=== PATIENT | female | born 1930 | race Caucasian/White ===

== ENCOUNTER 2017-11-19 11:45 | Emergency (ER) | payer OTHER ==
[2017-11-19] MEDS ORDERED: NS 1,000 ML IV ONE (13:16)
[2017-11-19 13:24] LABS: PLATELET COUNT 331 10^3/uL (150-400)
--- NOTE | 2017-11-19 14:49 | EDPHY ---
H & P Stated Complaint: abdominal pain N/D starting yesterday Time Seen by Provider: 11/19/17 12:45 HPI/ROS: Chief Complaint: Diarrhea HPI: 87-year-old woman started having loose stools yesterday. She has had 3-4 every day. Did have some abdominal pain earlier but has since resolved. No nausea or vomiting. No fevers or chills. Did have her flu shot 3 days ago. No blood or dark black stools. She is drinking fluids. No urinary urgency or frequency. ROS: 10 systems were reviewed and were negative except those elements noted in the HPI. Social History: No smoking, no alcohol, no recreational drug use Family History: non-contributory Physical Exam: Gen: Awake, Alert, No Distress HEENT: Nose: no rhinorrhea Eyes: PERRLA, EOMI Mouth: Moist mucosa Neck: Supple, no JVD Chest: nontender, lungs clear to auscultation Heart: S1, S2 normal, no murmur Abd: Soft, non-tender, no guarding Back: no CVA tenderness, no midline tenderness Ext: no edema, non-tender Skin: no rash Neuro: CN II-XII intact, Sensation grossly intact, Strength 5/5 in bilateral upper and lower extremities - Medical/Surgical History Hx Asthma: No Hx Chronic Respiratory Disease: No Hx Diabetes: Yes Hx Cardiac Disease: No Hx Renal Disease: No Hx Cirrhosis: No Hx Alcoholism: No Hx HIV/AIDS: No Hx Splenectomy or Spleen Trauma: No Other PMH: pre diabetic, TIA, hypothroid - Social History Smoking Status: Never smoked Constitutional: Initial Vital Signs Temperature (C) 36.4 C 11/19/17 11:49 Heart Rate 68 11/19/17 11:49 Respiratory Rate 18 11/19/17 11:49 Blood Pressure 178/96 H 11/19/17 11:49 O2 Sat (%) 95 11/19/17 11:49 O2 Delivery Mode Room Air Allergies/Adverse Reactions: Penicillins Allergy (Verified 11/19/17 11:53) Home Medications: Medication Instructions Recorded Benicar 11/19/17 Levothyroxine 11/19/17 Metoprolol Succinate 11/19/17 Medical Decision Making ED Course/Re-evaluation: Patient is improved asking go home after L fluid. Abdomen is soft and benign. She is afebrile. Her chemistry and CBC are normal. Stool results are pending but I think this can be followed up as an outpatient. Will discharge with follow-up with primary care physician. - Data Points Laboratory Results: Laboratory Results 11/19/17 12:20 11/19/17 12:20 11/19/17 11/19/17 11/19/17 14:25 12:20 12:20 WBC 8.17 10^3/uL 10^3/uL (3.80-9.50) RBC 4.94 10^6/uL 10^6/uL (4.18-5.33) Hgb 15.8 g/dL g/dL (12.6-16.3) Hct 46.5 % % (38.0-47.0) MCV 94.1 fL fL (81.5-99.8) MCH 32.0 pg pg (27.9-34.1) MCHC 34.0 g/dL g/dL (32.4-36.7) RDW 13.1 % % (11.5-15.2) Plt Count 331 10^3/uL 10^3/uL (150-400) MPV 9.7 fL fL (8.7-11.7) Neut % (Auto) 69.7 % % (39.3-74.2) Lymph % (Auto) 19.3 % % (15.0-45.0) [place] % (Auto) 8.9 % % (4.5-13.0) Eos % (Auto) 1.1 % % (0.6-7.6) Baso % (Auto) 0.5 % % (0.3-1.7) Nucleat RBC Rel Count 0.0 % % (0.0-0.2) Absolute Neuts (auto) 5.69 10^3/uL 10^3/uL (1.70-6.50) Absolute Lymphs (auto) 1.58 10^3/uL 10^3/uL (1.00-3.00) Absolute Monos (auto) 0.73 10^3/uL 10^3/uL (0.30-0.80) Absolute Eos (auto) 0.09 10^3/uL 10^3/uL (0.03-0.40) Absolute Basos (auto) 0.04 10^3/uL 10^3/uL (0.02-0.10) Absolute Nucleated RBC 0.00 10^3/uL 10^3/uL (0-0.01) Immature Gran % 0.5 % % (0.0-1.1) Immature Gran # 0.04 10^3/uL 10^3/uL (0.00-0.10) Sodium 139 mEq/L mEq/L (135-145) Potassium 4.5 mEq/L mEq/L (3.3-5.0) Chloride 106 mEq/L mEq/L (97-110) Carbon Dioxide 24 mEq/l mEq/l (22-31) Anion Gap 9 mEq/L mEq/L (8-16) BUN 22 mg/dL mg/dL (7-23) Creatinine 0.8 mg/dL mg/dL (0.6-1.0) Estimated GFR > 60 Glucose 177 mg/dL H mg/dL (70-100) Calcium 9.2 mg/dL mg/dL (8.5-10.4) Urine Color Pending Urine Appearance Pending Urine pH Pending Ur Specific [place] Pending Urine Protein Pending Urine Ketones Pending Urine Blood Pending Urine Nitrate Pending Urine Bilirubin Pending Urine Urobilinogen Pending Ur Leukocyte Esterase Pending Urine Glucose Pending Medications Given: Discontinued Medications Sodium Chloride (Ns) 1,000 mls @ 0 mls/hr IV ONCE ONE; Wide Open PRN Reason: Protocol Stop: 11/19/17 13:17 Last Admin: 11/19/17 13:31 Dose: 1,000 mls Departure - Departure Disposition: Home, Routine, Self-Care Clinical Impression: Diarrhea Condition: Good Instructions: Acute Diarrhea (ED) Additional Instructions: Make sure to drink plenty of fluids, at least 8, 8 oz glasses of water a day. Follow up with primary care physician on Tuesday for recheck. Return to the emergency department for increasing abdominal pain, uncontrolled diarrhea, vomiting, inability to drink fluids, decreased urination, or any other concerns. Referrals: PAXTON MONK [Other] - As per Instructions
[2017-11-19 15:06] VITALS: BP 167/75
== END 2017-11-19 15:00 | disposition home or self-care (01) ==
DX: R19.7 Diarrhea, unspecified (principal); E86.9 Volume depletion, unspecified; R73.03 Prediabetes; E03.9 Hypothyroidism, unspecified; Z86.73 Personal history of transient ischemic attack (TIA), and cerebral infarction without residual deficits

== ENCOUNTER 2018-01-05 18:20 | Emergency (ER) | payer OTHER ==
--- NOTE | 2018-01-05 19:11 | EDPHY ---
H & P Stated Complaint: low back pain since tuesday occasionally wraps to abd Time Seen by Provider: 01/05/18 18:41 HPI/ROS: CHIEF COMPLAINT: Back pain HISTORY OF PRESENT ILLNESS: This is an 87-year-old female who comes to the emergency department concerned about left-sided mid back pain that she has been experiencing while supine. This began 3 days ago and has been coming and going. It was particularly severe last night. She localizes the pain to her left flank region and states that it also radiated around to the front, involving her left chest and left abdomen. No midline back pain. No trauma. She has had some mild dysuria and is concerned about a urinary tract infection. She has not had fever or vomiting. She had some mild nausea earlier in the day. She denies diarrhea and constipation. She has no known history of coronary artery disease. At the time of my evaluation she is entirely pain free. She took Aleve last night and thought that it provided some relief. No medication for pain since. REVIEW OF SYSTEMS: A ten system review of systems was performed and is negative with the exception of the items mentioned in the HPI. Past medical history: 1. Hypertension 2. Hypothyroid 3. TIA 4. Hard of hearing Past surgical history: Thyroid surgery Social history: She lives independently. She ambulates with a walker. No tobacco use. She is here with her daughter who sees her frequently. General Appearance: Alert. Vital signs reviewed. Blood pressure 157/70. Afebrile. Eyes: Pupils equal and round, no conjunctival injection, no discharge. Anicteric. ENT, Mouth: Mucous membranes are moist, no oropharyngeal erythema or edema. Neck: No lymphadenopathy, supple. Respiratory: Lungs are clear to auscultation; no wheezes, rales, or rhonchi. Cardiovascular: Regular rate and rhythm; no murmur, rub, or gallop. Gastrointestinal: Abdomen is soft and nontender, no masses or organomegaly, bowel sounds normal. Skin: Warm and dry, no rashes on exposed skin, normal color. Back: Nontender to palpation over the thoracolumbar spine. No CVAT. Extremities: No lower extremity edema, no calf tenderness or swelling. Neurological: Alert and oriented. Moving all four extremities easily and equally. Psychiatric: Normal affect. - Personal History Current Tetanus Diphtheria and Acellular Pertussis (TDAP): Unsure - Medical/Surgical History Hx Asthma: No Hx Chronic Respiratory Disease: No Hx Diabetes: Yes Hx Cardiac Disease: No Hx Renal Disease: No Hx Cirrhosis: No Hx Alcoholism: No Hx HIV/AIDS: No Hx Splenectomy or Spleen Trauma: No Other PMH: pre diabetic, TIA, hypothroid htn - Social History Smoking Status: Never smoked Constitutional: Initial Vital Signs Temperature (C) 36.6 C 01/05/18 18:28 Heart Rate 75 01/05/18 18:28 Respiratory Rate 19 01/05/18 18:28 Blood Pressure 157/70 H 01/05/18 18:28 O2 Sat (%) 95 01/05/18 18:28 O2 Delivery Mode Room Air Allergies/Adverse Reactions: Penicillins Allergy (Verified 01/05/18 18:27) Home Medications: Medication Instructions Recorded Benicar 11/19/17 Levothyroxine 11/19/17 Metoprolol Succinate 11/19/17 Cephalexin [Keflex] 500 mg PO BID #13 cap 01/05/18 Medical Decision Making - Diagnostics EKG Interpretation: 12 lead EKG is interpreted in [place] by emergency department physician. ED Course/Re-evaluation: Intermittent left-sided back pain that also involved her left abdomen last night. She is currently pain-free. She is concerned about the possibility of a urinary tract infection. Urinalysis positive for trace bacteria and leukocyte esterase. She does not have fever and does not have flank pain at the time of my exam. I am not entirely certain that the pain she has been experiencing is attributable to a urinary tract infection and I do not think that she has pyelonephritis. Hwever , I think that is reasonable to treat her for UTI and I will be treating her with Keflex. Ureterolithiasis is a possibility. She does not have hematuria. She is currently pain-free and I do not recommend CT scanning or other imaging to assess for kidney stone. EKG and troponin are not suggestive of acute coronary syndrome. Chest x-ray does not show pneumonia. She does have what is either nodule or nipple shadow at the right base. This is relayed to the patient and her daughter and can be followed up by her primary care physician with a repeat chest x-ray with nipple markers if needed. Differential Diagnosis: Flank pain including but not limited to musculoskeletal causes, kidney stone, pyelonephritis, shingles, and intra-abdominal causes such as diverticulitis and appendicitis. - Data Points Laboratory Results: Laboratory Results 01/05/18 19:00 01/05/18 19:00 Medications Given: Discontinued Medications Cephalexin HCl (Keflex) 500 mg PO EDNOW ONE PRN Reason: Protocol Stop: 01/05/18 21:31 Last Admin: 01/05/18 21:36 Dose: 500 mg Point of Care Test Results: Chemistry 01/05/18 19:39 POC Troponin I 0.00 ng/mL ng/mL (0.00-0.08) Departure - Departure Disposition: Home, Routine, Self-Care Clinical Impression: Urinary tract infection Qualifiers: Urinary tract infection type: acute cystitis Hematuria presence: without hematuria Qualified Code(s): N30.00 - Acute cystitis without hematuria Back pain Qualifiers: Back pain location: low back pain Chronicity: acute Back pain laterality: left Sciatica presence: without sciatica Qualified Code(s): M54.5 - Low back pain Condition: Good Instructions: Urinary Tract Infection in Women (ED), Back Pain (ED) Additional Instructions: As we discussed, I am not certain that a urinary tract infection is the cause of your pain. If you have continued back pain you should see your doctor. Referrals: Lilly Leon MD [Primary Care Provider] - As per Instructions Prescriptions: Cephalexin [Keflex] 500 mg PO BID #13 cap
[2018-01-05 19:19] LABS: PLATELET COUNT 269 10^3/uL (150-400)
[2018-01-05] MEDS ORDERED: CEPHALEXIN 500 MG CAP PO ONE (21:30)
[2018-01-05 21:45] VITALS: BP 166/49
--- NOTE | 2018-01-06 00:03 | CPEKG ---
Test Reason : OPEN Blood Pressure : / mmHG Vent. Rate : 066 BPM Atrial Rate : 066 BPM P-R Int : 195 ms QRS Dur : 080 ms QT Int : 421 ms P-R-T Axes : 067 034 049 degrees QTc Int : 442 ms Sinus rhythm Confirmed by Phylicia Obregon ([id number]) on 01/06/2018 12:03:24 AM Referred By: Confirmed By:Phylicia Obregon
== END 2018-01-05 21:46 | disposition home or self-care (01) ==
DX: N39.0 Urinary tract infection, site not specified (principal); I10 Essential (primary) hypertension; E03.9 Hypothyroidism, unspecified
CPT/HCPCS: 84484-PO

== ENCOUNTER 2018-03-23 15:48 | Emergency (ER) | payer OTHER ==
--- NOTE | 2018-03-23 16:39 | EDPHY ---
HPI/HX/ROS/PE/MDM Narrative: CHIEF COMPLAINT: Back pain HISTORY OF PRESENT ILLNESS: The patient is an 87 y/o female arriving with her daughter complaining of right-sided back pain onset 2 days ago. She says the pain "vanesa shoots" every 3-5 minutes, but does not radiate anywhere. It is not clearly worse with movement, inspiration, or palpation and is not alleviated with positioning. She denies radiation into her leg, or weakness or paresthesias. She's never had pain like this previously. She took two old doses of what sounds like cephalexin with no change in symptoms, otherwise she has not taken anything for the pain. She denies recent trauma or fall. She did have shingles 2 months ago on the left side of her back and still has some scaring from that present. She denies history of kidney stones or known back problems. She did receive a flu vaccination this season. She denies any other symptoms including fever, chills, chest pain, shortness of breath, cough, rhinorrhea, sore throat, palpitations, nausea, vomiting, diarrhea, urinary complaints, headache, lightheadedness. REVIEW OF SYSTEMS: Aside from elements discussed in the HPI, a comprehensive 10-point review of systems was reviewed and is negative. PAST MEDICAL HISTORY: C. difficile, shingles 2 months ago, hearing loss SOCIAL HISTORY: Lives in independently. Daughter at bedside. VITAL SIGNS: Reviewed by me GENERAL: Well-developed, well-nourished, resting comfortably in no respiratory distress. HEENT: Atraumatic. Eyes: No icterus, no injection. Mouth: moist mucous membranes. No erythema or lesions. Neck: supple with no adenopathy. LUNGS: Clear to auscultation bilaterally, no wheezes, rhonchi or rales. CARDIAC: Regular rate and rhythm, no rubs, murmurs or gallops. ABDOMEN: Soft, nontender, nondistended, bowel sounds normal. BACK: Old shingles scars left side of back. No CVA tenderness. EXTREMITIES: No trauma. No edema. Range of motion is normal throughout. NEURO: Alert and oriented, grossly nonfocal. SKIN: Warm and dry, no rash. PSYCHIATRIC: Normal mentation, no agitation. Portions of this note were transcribed by a medical dermatologist. I personally performed a history, physical exam, medical decision making, and confirmed accuracy of information the transcribed note. ED Course: This is a [id number] 87 y/o female who presents with a 2-day history of right-sided back pain. Pain is not reproducible and not associated with any other symptoms. She is hemodynamically stable and her exam is nonfocal. Plan for IV, labs, abdominal CT, and symptom management. 1000mg PO Tylenol ordered for pain, 1L IV NS. Abdominal CT: nothing acute. Please refer to CT report for incidental findings. Labs unremarkable. UA 3-5 white cells per high-power field, 1+ bacteria 1850: Reassessed patient and discussed findings. She feels similar to prior. A lidocaine patch was just applied. 50mg PO Tramadol ordered for pain. Discussed follow up with her PCP tomorrow if not completely improved and otherwise follow up by early next week for reassessment and discussion of CT findings. Patient will be treated for potential urinary tract infection. Urine was sent for culture. She was discharged with her daughter. The understand that no significant cause of the patient's back pain has been identified with the exception of possible urinary tract infection and possible musculoskeletal back pain flare. MDM: After history was obtained and physical exam performed, the differential for back pain was considered including but not limited to muscular pain, herniated disc, spine fracture, intra-abdominal causes, and urinary tract infection. - Data Points Imaging Results: CT Scan Abd Pelvis Impression: 1. There is no evidence of nephrolithiasis or obstructive uropathy. 2. Coronary artery atherosclerotic plaque. 3. Cholelithiasis. 4. There is a 3.1 cm hypodense structure off the [id number] pole portion of the left kidney, probably representing a cyst, however confirmation with sonography is suggested. 5. Extensive left-sided colonic diverticulosis, with no active diverticulitis. 6. Smoothly-contoured questionable nodularity along the urinary bladder base. Correlation with urinalysis is suggested (with cytology), and potential cystoscopy, as clinically directed. 7. Bibasilar noncalcified pulmonary nodules, the largest seen in the right lower lobe measuring 8.3 mm. Please see the above algorithm for follow-up. Attention: This CT examination is specifically designed to evaluate patients who are clinically suspected of having acute obstructive uropathy. This examination does not use radiographic contrast , and as such, provides only a limited evaluation of the abdomen, pelvis, and retroperitoneum. If there is further clinical suspicion for pathological conditions other than obstructive uropathy, a complete CT evaluation of the abdomen and pelvis utilizing intravenous, oral, and rectal contrast should be considered. Findings were discussed with Tootie Richardson MD at 18:25, on 03/23/2018. Dictated By: Raul Diaz MD Imaging: Discussed imaging studies w/ train caller Radiologist, I viewed and interpreted images myself Laboratory Results: Laboratory Results 03/23/18 16:47 03/23/18 16:47 Medications Given: Discontinued Medications Acetaminophen (Tylenol) 1,000 mg PO EDNOW ONE Stop: 03/23/18 18:34 Last Admin: 03/23/18 18:42 Dose: 1,000 mg Cephalexin HCl (Keflex) 500 mg PO EDNOW ONE PRN Reason: Protocol Stop: 03/23/18 19:16 Last Admin: 03/23/18 19:27 Dose: 500 mg Fentanyl (Sublimaze) 50 mcg IVP EDNOW ONE Stop: 03/23/18 17:07 Last Admin: 03/23/18 17:15 Dose: Not Given Sodium Chloride (Ns) 500 mls @ 1,000 mls/hr IV EDNOW ONE PRN Reason: Protocol Stop: 03/23/18 17:35 Last Admin: 03/23/18 17:14 Dose: 500 mls Miscellaneous Medication (Icy Hot Lidocaine/Menthol 4%/1% Patch) 1 patch TD EDNOW ONE Stop: 03/23/18 18:34 Last Admin: 03/23/18 18:43 Dose: 1 patch Tramadol HCl (Ultram) 50 mg PO EDNOW ONE Stop: 03/23/18 18:59 Last Admin: 03/23/18 19:02 Dose: 50 mg General Time Seen by Provider: 03/23/18 16:24 Initial Vital Signs: Initial Vital Signs Temperature (C) 36.7 C 03/23/18 15:57 Heart Rate 75 03/23/18 15:57 Respiratory Rate 18 03/23/18 15:57 Blood Pressure 148/70 H 03/23/18 15:57 O2 Sat (%) 98 03/23/18 15:57 O2 Delivery Mode Room Air Allergies/Adverse Reactions: Penicillins Allergy (Verified 03/23/18 15:56) Home Medications: Medication Instructions Recorded Benicar 11/19/17 Levothyroxine 11/19/17 Metoprolol Succinate 11/19/17 Cephalexin [Keflex (RX)] 500 mg PO TID 7 Days cap 03/23/18 Tramadol HCl 25 - 50 mg PO Q6 PRN #14 tablet 03/23/18 Departure - Departure Disposition: Home, Routine, Self-Care Clinical Impression: Back pain Qualifiers: Back pain location: low back pain Chronicity: acute Back pain laterality: right Sciatica presence: without sciatica Qualified Code(s): M54.5 - Low back pain Condition: Good Instructions: Back Pain (ED) Additional Instructions: If you are not completely better by tomorrow, contact your primary care provider to schedule an appointment for tomorrow with anyone in their office for reassessment. Otherwise, follow up with your primary care provider early next week to discuss incidental findings on your CT today and for recheck of your current symptoms. Return to the ED for any worsening of condition. Referrals: Lilly Leon MD [Primary Care Provider] - As per Instructions Prescriptions: Cephalexin [Keflex (RX)] 500 mg PO TID 7 Days cap Tramadol HCl 25 - 50 mg PO Q6 PRN #14 tablet PRN Reason: Pain, Breakthrough Report Scribed for: Tootie Richardson Report Scribed by: Nell Ferguson Date of Report: 03/23/18 Time of Report: 17:35
[2018-03-23] MEDS ORDERED: fentaNYL 100 MCG/2 ML INJ IVP ONE (17:06)
[2018-03-23] MEDS ORDERED: NS 500 ML IV ONE (17:06)
[2018-03-23 17:07] LABS: PLATELET COUNT 280 10^3/uL (150-400)
[2018-03-23] MEDS ORDERED: LIDOCAINE 4%/MENTHOL 1% PATCH TD ONE (18:33)
[2018-03-23] MEDS ORDERED: ACETAMINOPHEN 500 MG TAB PO ONE (18:33)
[2018-03-23] MEDS ORDERED: traMADol 50 MG TAB PO ONE (18:58)
[2018-03-23] MEDS ORDERED: CEPHALEXIN 500 MG CAP PO ONE (19:15)
[2018-03-23 19:33] VITALS: BP 185/106
[2018-03-23] MEDS ORDERED: PATCH REMOVAL 1 EA PATCH TD SCH (21:00)
== END 2018-03-23 19:31 | disposition home or self-care (01) ==
DX: M54.5 Low back pain (principal); E86.9 Volume depletion, unspecified
CPT/HCPCS: 74176; 99285; J3010

== ENCOUNTER 2018-05-29 05:29 | Emergency (ER) | payer OTHER ==
[2018-05-29] MEDS ORDERED: LIDOCAINE 4%/MENTHOL 1% PATCH TD ONE (05:58)
[2018-05-29] MEDS ORDERED: KETOROLAC 15 MG/1 ML SDV IM ONE (05:58)
--- NOTE | 2018-05-29 06:09 | EDPHY ---
H & P Stated Complaint: BACK PAIN Source: Patient, Family Exam Limitations: No limitations - Personal History Current Tetanus Diphtheria and Acellular Pertussis (TDAP): Unsure - Medical/Surgical History Hx Asthma: No Hx Chronic Respiratory Disease: No Hx Diabetes: Yes Hx Cardiac Disease: No Hx Renal Disease: No Hx Cirrhosis: No Hx Alcoholism: No Hx HIV/AIDS: No Hx Splenectomy or Spleen Trauma: No Other PMH: pre diabetic, TIA, hypothroid htn - Social History Smoking Status: Never smoked Time Seen by Provider: 05/29/18 05:41 HPI/ROS: HPI The patient presents with right-sided low back pain which has been present since after dinner last night. The patient went out to dinner in as she was getting into the car to go home she complained to her daughter that her back hurt. She has right-sided pain which is dull and aching in nature which does not radiate. This feels somewhat similar to the pain she had in March which brought her into the emergency department. She took a dose of tramadol at 4:00 a.m. Because she could not sleep because of the pain, however this did not help , so she comes into the emergency department with her daughter. She denies any numbness or tingling of her legs. She does not have any weakness of her legs. She does not have any incontinence. REVIEW OF SYSTEMS 10 systems were reviewed and negative with the exception of the elements mentioned in the history of present illness. PMHx: History of back pain, hypertension, prediabetes, history of shingles, C difficile, hard of hearing Soc Hx: Lives independently, here with her daughter PHYSICAL General Appearance: Alert, no distress Eyes: Pupils equal and round no pallor or injection ENT, Mouth: Mucous membranes moist Respiratory: There are no retractions, lungs are clear to auscultation Cardiovascular: Regular rate and rhythm Gastrointestinal: Abdomen is soft and non-tender, no masses, bowel sounds normal Back: There is tenderness to the right paraspinal muscle group at approximately L1, there is no midline tenderness Neurological: A&O, moves all extremities Skin: Warm and dry, no rashes Musculoskeletal: Neck is supple non tender Extremities: symmetrical, full range of motion Psychiatric: Patient is oriented X 3, there is no agitation (Riguzzi,Romina) Constitutional: Initial Vital Signs Temperature (C) 36.5 C 05/29/18 05:35 Heart Rate 72 05/29/18 05:35 Respiratory Rate 18 05/29/18 05:35 Blood Pressure 185/65 H 05/29/18 05:35 O2 Sat (%) 94 05/29/18 05:35 O2 Delivery Mode Room Air Allergies/Adverse Reactions: Penicillins Allergy (Verified 03/23/18 15:56) Home Medications: Medication Instructions Recorded Benicar 11/19/17 Levothyroxine 11/19/17 Metoprolol Succinate 11/19/17 Cephalexin [Keflex (RX)] 500 mg PO TID 7 Days cap 03/23/18 Tramadol HCl 25 - 50 mg PO Q6 PRN #14 tablet 03/23/18 Cephalexin [Keflex (RX)] 500 mg PO TID #30 cap 05/29/18 Medical Decision Making - Diagnostics Imaging Results: CT lumbar spine demonstrates no acute abnormality, 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 ( Romina Prajapati) Differential Diagnosis: 87-year-old female with hypertension, pre diabetes, previous history of back pain presents from home with back pain which began last night after getting into a car. The pain is right-sided and in her upper lumbar region, there is no midline tenderness, weakness of her arms or legs, paresthesias, bowel or bladder changes, fever. Differential diagnosis includes muscle sprain, compression fracture, pyelonephritis, less likely AAA. Plan for pain control here, UA, CT scan. (Romina Prajapati) 0700: I assumed care of this patient from Dr. Prajapati at shift change pending UA results. 0753: Patient's UA is positive for a UTI. I will prescribe her Keflex; her first dose was given prior to discharge. Return precautions provided; patient is comfortable with this plan. (Balwinder Lopez) - Data Points Laboratory Results: 05/29/18 07:25 Urine Color YELLOW Urine Appearance HAZY Urine pH 6.0 (5.0-7.5) Ur Specific [place] 1.018 (1.002-1.030) Urine Protein NEGATIVE (NEGATIVE) Urine Ketones NEGATIVE (NEGATIVE) Urine Blood NEGATIVE (NEGATIVE) Urine Nitrate NEGATIVE (NEGATIVE) Urine Bilirubin NEGATIVE (NEGATIVE) Urine Urobilinogen 2.0 EU H EU (0.2-1.0) Ur Leukocyte Esterase 2+ H (NEGATIVE) Urine RBC 1-3 /hpf /hpf (0-3) Urine WBC 1-3 /hpf /hpf (0-3) Ur Epithelial Cells 1+ /lpf /lpf (NONE-1+) Urine Bacteria 1+ /hpf H /hpf (NONE SEEN) Hyaline Casts 1-5 /lpf /lpf (0-1) Urine Mucus TRACE /lpf /lpf (NONE-1+) Urine Glucose 1+ H (NEGATIVE) Medications Given: Discontinued Medications Acetaminophen (Tylenol) 500 mg PO EDNOW ONE Stop: 05/29/18 06:35 Last Admin: 05/29/18 06:34 Dose: 500 mg Ketorolac Tromethamine (Toradol) 30 mg IM EDNOW ONE Stop: 05/29/18 05:59 Last Admin: 05/29/18 06:23 Dose: 30 mg Miscellaneous Medication (Icy Hot Lidocaine/Menthol 4%/1% Patch) 1 patch TD EDNOW ONE Stop: 05/29/18 05:59 Last Admin: 05/29/18 06:22 Dose: 1 patch Departure - Departure Disposition: Home, Routine, Self-Care Clinical Impression: Back pain Qualifiers: Back pain location: low back pain Chronicity: acute Back pain laterality: right Sciatica presence: without sciatica Qualified Code(s): M54.5 - Low back pain Urinary tract infection Qualifiers: Urinary tract infection type: site unspecified Hematuria presence: without hematuria Qualified Code(s): N39.0 - Urinary tract infection, site not specified Condition: Good Instructions: Urinary Tract Infection in Women (ED), Low Back Strain (ED) Additional Instructions: Take Keflex as prescribed for your UTI. I recommend that you take ibuprofen 400 mg with acetaminophen 650 mg every 6 hr as needed for back pain. You should return to the emergency department if your worse in any way. Referrals: Lilly Leon MD [Primary Care Provider] - As per Instructions Prescriptions: Cephalexin [Keflex (RX)] 500 mg PO TID #30 cap
[2018-05-29] MEDS ORDERED: ACETAMINOPHEN 500 MG TAB ONE (06:28)
[2018-05-29] MEDS ORDERED: ACETAMINOPHEN 500 MG TAB PO ONE (06:34)
[2018-05-29] MEDS ORDERED: HYDROCOD/APAP 5/325 PREPACK#6 BTL TAKEHOME ONE (07:21)
[2018-05-29] MEDS ORDERED: CEPHALEXIN 500 MG CAP PO ONE (07:51)
[2018-05-29] MEDS: HYDROCODONE/APAP 5/325 TAB PO ONE ×2 (08:04→08:18)
[2018-05-29] MEDS ORDERED: HYDROCODONE/APAP 5/325 TAB ONE (08:17)
[2018-05-29 08:23] VITALS: BP 196/59
[2018-05-29] MEDS ORDERED: PATCH REMOVAL 1 EA PATCH TD SCH (21:00)
== END 2018-05-29 08:23 | disposition home or self-care (01) ==
DX: M54.5 Low back pain (principal); N39.0 Urinary tract infection, site not specified; I10 Essential (primary) hypertension; E03.9 Hypothyroidism, unspecified; R73.03 Prediabetes; Z88.0 Allergy status to penicillin
CPT/HCPCS: 72131; 96372; 99285; J1885